=== PATIENT | female | born 1935 | race Caucasian/White ===

== ENCOUNTER 2018-01-22 10:02 | Outpatient (CLI) | payer MEDICARE | END 2018-01-22 10:03 | disposition home or self-care (01) | LOC: BICMAMMO 10:02 | PROVIDERS: ATTEND Family Medicine | DX: Z12.31 Encounter for screening mammogram for malignant neoplasm of breast (principal); Z80.3 Family history of malignant neoplasm of breast | CPT/HCPCS: 77063; 77067 ==

== ENCOUNTER 2019-01-24 11:31 | Outpatient (CLI) | payer MEDICARE ==
--- NOTE | 2019-01-24 13:03 | MMO ---
Bilateral MAMMO Bilat Screen [facility]. CLINICAL HISTORY: Patient is 83 years old and is seen for screening. The patient has the following family history of breast cancer: sister. The patient has no personal history of cancer. VIEWS: The views performed were: bilateral craniocaudal with tomosynthesis and bilateral mediolateral oblique with tomosynthesis. FILMS COMPARED: The present examination has been compared to prior imaging studies performed at [facility] on 01/19/2015, 01/21/2016, 01/21/2017 and 01/22/2018. This study has been interpreted with the assistance of computer-aided detection. MAMMOGRAM FINDINGS: There are scattered fibroglandular densities. There are no suspicious masses, suspicious calcifications, or new areas of architectural distortion. IMPRESSION: THERE IS NO MAMMOGRAPHIC EVIDENCE OF MALIGNANCY. A ROUTINE FOLLOW-UP MAMMOGRAM IN 1 YEAR IS RECOMMENDED. THE RESULTS OF THIS EXAM WERE SENT TO THE PATIENT. ACR BI-RADS Category 1 - Negative MAMMOGRAPHY NOTE: 1. A negative mammogram report should not delay a biopsy if a dominant of clinically suspicious mass is present. 2. Approximately 10% to 15% of breast cancers are not detected by mammography. 3. Adenosis and dense breasts may obscure an underlying neoplasm. Reported by: Meliza GLORIA Electonically Signed: [id number]
== END 2019-01-24 11:32 | disposition home or self-care (01) ==
LOC: BICMAMMO 11:31
PROVIDERS: ATTEND Family Medicine
DX: Z12.31 Encounter for screening mammogram for malignant neoplasm of breast (principal); Z80.3 Family history of malignant neoplasm of breast
CPT/HCPCS: 77063; 77067

== ENCOUNTER 2020-01-31 12:54 | Outpatient (CLI) | payer MEDICARE ==
--- NOTE | 2020-01-31 13:50 | BD ---
EXAM: DEXA bone density examination HISTORY: 84-year-old postmenopausal female for screening COMPARISON: None FINDINGS: L1--bone mineral density 0.795 g/sq cm; T score -1.8 L2--bone mineral density 0.942 g/sq cm; T score -0.8 L3--bone mineral density 1.030 g/sq cm; T score -0.5 L4--bone mineral density 0.953 g/sq cm; T score -1.0 Total L1-L4--bone mineral density 0.938 g/sq cm; T score -1.0 Left femoral neck--bone mineral density0.736; T score -1.0 Total proximal left femur--bone mineral density 0.906; T score -0.3 IMPRESSION: Normal bone density.
--- NOTE | 2020-01-31 13:53 | MMO ---
Bilateral MAMMO Bilat Screen [facility]. CLINICAL HISTORY: Patient is 84 years old and is seen for screening. The patient has the following family history of breast cancer: sister. The patient has no personal history of cancer. VIEWS: The views performed were: bilateral craniocaudal with tomosynthesis and bilateral mediolateral oblique with tomosynthesis. FILMS COMPARED: The present examination has been compared to prior imaging studies performed at [facility] on 01/21/2016, 01/21/2017, 01/22/2018 and 01/24/2019. This study has been interpreted with the assistance of computer-aided detection. MAMMOGRAM FINDINGS: There are scattered fibroglandular densities. Benign calcifications are noted bilaterally. There are no suspicious masses, suspicious calcifications, or new areas of architectural distortion. IMPRESSION: THERE IS NO MAMMOGRAPHIC EVIDENCE OF MALIGNANCY. A ROUTINE FOLLOW-UP MAMMOGRAM IN 1 YEAR IS RECOMMENDED. THE RESULTS OF THIS EXAM WERE SENT TO THE PATIENT. ACR BI-RADS Category 2 - Benign finding MAMMOGRAPHY NOTE: 1. A negative mammogram report should not delay a biopsy if a dominant of clinically suspicious mass is present. 2. Approximately 10% to 15% of breast cancers are not detected by mammography. 3. Adenosis and dense breasts may obscure an underlying neoplasm. Reported by: KARSON JUAREZ MD Electonically Signed: [id number]
--- NOTE | 2020-01-31 13:54 | RAD ---
EXAM: XR Lumbar Spine 2 Or 3 View PROVIDED CLINICAL HISTORY: Low back pain COMPARISON: None FINDINGS: 5 nonrib-bearing lumbar-type vertebral bodies are demonstrated. Grade 1 anterolisthesis L3 on L4. Lum bar alignment appears otherwise normal. Vertebral body heights appear preserved. Disc space narrowing and endplate degenerative changes are noted at L1-2 and L2-3. Vascular calcifications are s een. Lower lumbar spine facet degenerative changes are noted. IMPRESSION: Lumbar disc and facet degeneration.
== END 2020-01-31 12:55 | disposition home or self-care (01) ==
LOC: BICMAMMO 12:54
PROVIDERS: ATTEND Family Medicine
DX: Z12.31 Encounter for screening mammogram for malignant neoplasm of breast (principal); Z13.820 Encounter for screening for osteoporosis; Z78.0 Asymptomatic menopausal state; M85.89 Other specified disorders of bone density and structure, multiple sites; M51.36 Other intervertebral disc degeneration, lumbar region
CPT/HCPCS: 72100; 77063; 77067; 77080

== ENCOUNTER 2021-02-13 12:42 | Outpatient (CLI) | payer MEDICARE | END 2021-02-13 12:43 | disposition home or self-care (01) | LOC: BICMAMMO 12:42 | PROVIDERS: ATTEND Family Medicine | DX: Z12.31 Encounter for screening mammogram for malignant neoplasm of breast (principal); Z80.3 Family history of malignant neoplasm of breast | CPT/HCPCS: 77063; 77067 ==

== ENCOUNTER 2021-08-20 10:03 | Inpatient (IN) | payer MEDICARE ==
[2021-08-20 10:42] LABS: #Eosinphils 0.4 thou/uL (0.0-0.7); #Lymphocytes 1.2 thou/uL (1.20-3.40); #Monocytes 0.5 thou/uL (0.11-0.59); #Neutrophils 7.9 thou/uL (1.40-6.50); %Basophils 0.2 % (0.0-1.0); %Eosinophils 4.2 % (0.0-10.0); %Lymphocytes 11.9 % (21.0-51.0); %Monocytes 4.5 % (0.0-10.0); %Neutrophils 79.3 % (42.0-75.0); Mean Corpuscular HGB CONC 33.9 g/dL (32.0-36.0); Mean Corpuscular Hemoglobin 33.9 pg (27.0-31.0); Mean Platelet Volume 6.2 fL (7.4-10.4); Platelet Count 200 thou/uL (130-400); RBC Distribution Width 11.9 % (11.5-14.5); White Blood Cell (WBC) Count 9.9 thou/uL (4.8-10.8)
[2021-08-20] MEDS ORDERED: Nitroglycerin 2% Ointment 1 INCH/1 GM Packet ONE (11:12)
[2021-08-20] MEDS ORDERED: Furosemide 40 MG/4 ML VIAL ONE (11:12)
[2021-08-20 11:22] LABS: ALT (SGPT) 15 U/L (8-55); AST (SGOT) 21 U/L (5-34); Albumin 4.2 g/dL (3.4-4.8); Alkaline Phosphatase 56 U/L (40-110); Anion Gap 13 mmol/L (10-20); BUN (Urea Nitrogen) 15 mg/dL (9.8-20.1); Bilirubin, Total 0.8 mg/dL (0.2-1.2); Calc. Creatinine Clearance 0 mL/min (70-130); Calcium 9.4 mg/dL (7.8-10.44); Carbon Dioxide 21 mmol/L (23-31); Chloride 104 mmol/L (98-107); Globulin 2.8 g/dL (2.4-3.5); Glucose 109 mg/dL (83-110); Lipase 22 U/L (8-78); Potassium 4.4 mmol/L (3.5-5.1); Sodium 134 mmol/L (136-145)
[2021-08-20] MEDS ORDERED: predniSONE 20 MG TAB ONE (11:35)
[2021-08-20] MEDS ORDERED: Magnesium 2 GM/50 ML BAG (IN WATER) ONE (11:35)
[2021-08-20] MEDS ORDERED: Ondansetron PF 4 MG/2 ML Vial IVP PRN (12:16)
[2021-08-20] MEDS ORDERED: Ondansetron ODT 4 MG TAB PO PRN (12:16)
[2021-08-20] MEDS ORDERED: Acetaminophen 325 MG TAB PO PRN (12:16)
[2021-08-20] MEDS ORDERED: HYDROcodone/Acetaminophen 5/325 mg Tablet PO PRN (12:16)
[2021-08-20] MEDS: Furosemide 20 MG/2 ML VIAL SLOW IVP SCH (15:16)
[2021-08-20 15:50] VITALS: BMI 22.5
[2021-08-20 16:14] LABS: SARS-CoV-2 NAA Rapid Test Not Detected (NotDetected)
[2021-08-20] MEDS: Aspirin 325 MG TAB PO SCH (21:13)
[2021-08-21 04:59] LABS: #Lymphocytes 0.8 thou/uL (1.20-3.40); #Monocytes 0.4 thou/uL (0.11-0.59); %Basophils 0.1 % (0.0-1.0); %Lymphocytes 7.6 % (21.0-51.0); %Monocytes 4.3 % (0.0-10.0); Hemoglobin 14.1 g/dL (12.0-16.0); Mean Corpuscular HGB CONC 34.2 g/dL (32.0-36.0); Mean Corpuscular Hemoglobin 33.8 pg (27.0-31.0); Mean Corpuscular Volume 98.9 fL (78.0-98.0); Mean Platelet Volume 6.4 fL (7.4-10.4); Platelet Count 209 thou/uL (130-400); RBC Distribution Width 11.8 % (11.5-14.5); Red Blood Cell (RBC) Count 4.16 mill/uL (4.20-5.40); White Blood Cell (WBC) Count 10.2 thou/uL (4.8-10.8)
[2021-08-21 05:13] LABS: ALT (SGPT) 9 U/L (8-55); AST (SGOT) 13 U/L (5-34); Albumin 3.5 g/dL (3.4-4.8); Alkaline Phosphatase 43 U/L (40-110); Anion Gap 15 mmol/L (10-20); BUN (Urea Nitrogen) 21 mg/dL (9.8-20.1); Bilirubin, Total 0.5 mg/dL (0.2-1.2); Calc. Creatinine Clearance 35 mL/min (70-130); Calcium 9.4 mg/dL (7.8-10.44); Carbon Dioxide 20 mmol/L (23-31); Chloride 101 mmol/L (98-107); Globulin 2.3 g/dL (2.4-3.5); Glucose 212 mg/dL (83-110); Potassium 3.7 mmol/L (3.5-5.1); Protein, Total 5.8 g/dL (5.8-8.1); Sodium 132 mmol/L (136-145)
[2021-08-21] MEDS: Furosemide 20 MG/2 ML VIAL SLOW IVP SCH ×2 (06:21→13:40)
[2021-08-21] MEDS: Levothyroxine Sodium 50 MCG TAB PO SCH (06:21)
[2021-08-21] MEDS: Aspirin 325 MG TAB PO SCH (08:50)
[2021-08-21] MEDS: Rosuvastatin 10 MG TAB PO SCH (08:51)
[2021-08-21] MEDS: Enoxaparin Sodium 30 MG/0.3 ML SYRINGE SC SCH (08:54)
[2021-08-21] MEDS ORDERED: Enoxaparin Sodium 30 MG/0.3 ML SYRINGE SC SCH (09:00)
[2021-08-22] MEDS: Levothyroxine Sodium 50 MCG TAB PO SCH (05:34)
[2021-08-22] MEDS ORDERED: Aspirin 325 mg Enteric Coated Tablet PO SCH (09:00)
[2021-08-22] MEDS ORDERED: Furosemide 20 MG TAB PO SCH (09:00)
[2021-08-22] MEDS ORDERED: Loratadine 10 MG TAB PO SCH (09:00)
[2021-08-22] MEDS: Rosuvastatin 10 MG TAB PO SCH (09:50)
[2021-08-22] MEDS: Enoxaparin Sodium 30 MG/0.3 ML SYRINGE SC SCH (09:50)
[2021-08-22 15:56] VITALS: BP 158/87; TEMP 98.8
== END 2021-08-22 18:59 | disposition home or self-care (01) | DRG 291 ==
LOC: ERS 10:03 → ERHOLD 11:52 → 2NO 15:25
PROVIDERS: ADMIT Internal Medicine; ATTEND Internal Medicine
DX: I11.0 Hypertensive heart disease with heart failure (principal); I50.33 Acute on chronic diastolic (congestive) heart failure; E87.1 Hypo-osmolality and hyponatremia; E78.5 Hyperlipidemia, unspecified; Z20.822 Contact with and (suspected) exposure to COVID-19; I25.10 Atherosclerotic heart disease of native coronary artery without angina pectoris; E03.9 Hypothyroidism, unspecified; Z96.652 Presence of left artificial knee joint; K21.9 Gastro-esophageal reflux disease without esophagitis; Z95.1 Presence of aortocoronary bypass graft; Z90.49 Acquired absence of other specified parts of digestive tract; Z98.890 Other specified postprocedural states; Z79.51 Long term (current) use of inhaled steroids; Z79.899 Other long term (current) drug therapy; Z79.82 Long term (current) use of aspirin; Z90.710 Acquired absence of both cervix and uterus
CPT/HCPCS: 36415; 71045; 80053; 83690; 83880; 84484; 85025; 93005; 93306; 94640; 96365; 96375; J1650; J1940; J3475; J7512; J7620; U0002

== ENCOUNTER 2021-09-09 21:56 | Observation (INO) | payer MEDICARE ==
[2021-09-09] MEDS ORDERED: Albuterol Sulfate 2.5 mg/3 ml Neb ONE (22:49)
[2021-09-09] MEDS ORDERED: Dexamethasone 10 MG/ML VIAL ONE (22:56)
[2021-09-09] MEDS ORDERED: Magnesium 2 GM/50 ML BAG (IN WATER) ONE (22:56)
[2021-09-09] MEDS ORDERED: Nitroglycerin 2% Ointment 1 INCH/1 GM Packet ONE (22:56)
[2021-09-09] MEDS ORDERED: Aspirin Chewable 81 MG TAB ONE (22:56)
[2021-09-09] MEDS ORDERED: Furosemide 40 MG/4 ML VIAL ONE (22:56)
[2021-09-09 23:09] LABS: ALT (SGPT) 20 U/L (8-55); AST (SGOT) 27 U/L (5-34); Albumin 4.2 g/dL (3.4-4.8); Alkaline Phosphatase 60 U/L (40-110); Anion Gap 17 mmol/L (10-20); BUN (Urea Nitrogen) 12 mg/dL (9.8-20.1); Bilirubin, Total 0.7 mg/dL (0.2-1.2); CK (CPK) 126 U/L (29-168); Calc. Creatinine Clearance 0 mL/min (70-130); Calcium 9.2 mg/dL (7.8-10.44); Carbon Dioxide 20 mmol/L (23-31); Chloride 99 mmol/L (98-107); Estimated GFR 55; Globulin 3.2 g/dL (2.4-3.5); Glucose 155 mg/dL (83-110); Lipase 24 U/L (8-78); Potassium 3.7 mmol/L (3.5-5.1); Protein, Total 7.4 g/dL (5.8-8.1); Sodium 132 mmol/L (136-145)
[2021-09-09 23:10] LABS: Band 8 % (5-11); Eosinophils 6 % (0-10); Hemoglobin 17.6 g/dL (12.0-16.0); Lymphocytes 7 % (21-51); MDiff Complete? YES; Mean Corpuscular HGB CONC 34.4 g/dL (32.0-36.0); Mean Corpuscular Hemoglobin 34.4 pg (27.0-31.0); Mean Platelet Volume 7.3 fL (7.4-10.4); Monocytes 1 % (0-10); Neutrophil 78 % (42-75); Platelet Count 166 thou/uL (130-400); RBC Distribution Width 11.9 % (11.5-14.5); Red Blood Cell (RBC) Count 5.13 mill/uL (4.20-5.40); White Blood Cell (WBC) Count 12.8 thou/uL (4.8-10.8)
[2021-09-10] MEDS ORDERED: Bisacodyl 5 MG TAB PO PRN (00:38)
[2021-09-10] MEDS ORDERED: Zolpidem Tartrate 5 MG TAB PO PRN (00:38)
[2021-09-10] MEDS ORDERED: Ondansetron PF 4 MG/2 ML Vial IVP PRN (00:38)
[2021-09-10] MEDS ORDERED: Acetaminophen 325 MG TAB PO PRN (00:38)
[2021-09-10] MEDS ORDERED: Guaifenesin DM 100-10/5 ML UDCUP PO PRN (00:38)
[2021-09-10] MEDS ORDERED: HYDROcodone/Acetaminophen 5/325 mg Tablet PO PRN (00:38)
[2021-09-10] MEDS ORDERED: Artificial Tear Sol 15 ML BOT EA EYE PRN (00:42)
[2021-09-10] MEDS ORDERED: hydrALAZINE 20 MG/ML VIAL SLOW IVP PRN (00:44)
[2021-09-10] MEDS ORDERED: NIFEdipine XL 60 MG TAB PO SCH ×2 (01:00→09:00)
[2021-09-10] MEDS ORDERED: cefTRIAXone\\ROCEPHIN 1 GM in Sodium Chloride 0.9% 100 ML IVPB SCH (02:00)
[2021-09-10 03:53] LABS: SARS-CoV-2 NAA Rapid Test Not Detected (NotDetected)
[2021-09-10 05:13] LABS: #Lymphocytes 0.6 thou/uL (1.20-3.40); #Monocytes 0.1 thou/uL (0.11-0.59); #Neutrophils 8.5 thou/uL (1.40-6.50); %Basophils 0.2 % (0.0-1.0); %Eosinophils 0.2 % (0.0-10.0); %Lymphocytes 6.2 % (21.0-51.0); %Neutrophils 92.4 % (42.0-75.0); Mean Corpuscular HGB CONC 33.1 g/dL (32.0-36.0); Mean Corpuscular Hemoglobin 33.4 pg (27.0-31.0); Mean Platelet Volume 7.1 fL (7.4-10.4); Platelet Count 207 thou/uL (130-400); Red Blood Cell (RBC) Count 4.79 mill/uL (4.20-5.40); White Blood Cell (WBC) Count 9.2 thou/uL (4.8-10.8)
[2021-09-10 05:35] LABS: ALT (SGPT) 17 U/L (8-55); AST (SGOT) 21 U/L (5-34); Albumin 4.1 g/dL (3.4-4.8); Alkaline Phosphatase 55 U/L (40-110); Anion Gap 17 mmol/L (10-20); BUN (Urea Nitrogen) 12 mg/dL (9.8-20.1); Bilirubin, Total 0.7 mg/dL (0.2-1.2); Calc. Creatinine Clearance 0 mL/min (70-130); Calcium 9.1 mg/dL (7.8-10.44); Carbon Dioxide 23 mmol/L (23-31); Chloride 98 mmol/L (98-107); Estimated GFR 57; Globulin 2.8 g/dL (2.4-3.5); Glucose 194 mg/dL (83-110); Potassium 3.6 mmol/L (3.5-5.1); Protein, Total 6.9 g/dL (5.8-8.1); Sodium 134 mmol/L (136-145)
[2021-09-10 05:43] VITALS: BMI 21.1
[2021-09-10] MEDS: methylPREDNISolone Sod Succ 40 MG VIAL IVP SCH ×2 (05:52→13:52)
[2021-09-10] MEDS ORDERED: Levothyroxine Sodium 50 MCG TAB PO SCH (06:00)
[2021-09-10] MEDS ORDERED: Albuterol Sulfate 2.5 mg/3 ml Neb ONE (07:38)
[2021-09-10] MEDS ORDERED: Potassium Chloride 10 MEQ TAB PO SCH (08:00)
[2021-09-10] MEDS ORDERED: Famotidine 20 MG TAB PO SCH (09:00)
[2021-09-10] MEDS ORDERED: Cefepime 2 GM in Sodium Chloride 0.9% 100 ML IVPB SCH (09:00)
[2021-09-10] MEDS ORDERED: Furosemide 20 MG TAB PO SCH (09:00)
[2021-09-10] MEDS ORDERED: Aspirin 325 mg Enteric Coated Tablet PO SCH (09:00)
[2021-09-10] MEDS ORDERED: Rosuvastatin 10 MG TAB PO SCH (09:00)
[2021-09-10] MEDS ORDERED: Enoxaparin Sodium 30 MG/0.3 ML SYRINGE SC SCH (09:00)
[2021-09-10] MEDS ORDERED: DorzolamidE/Timolol 2%/0.5% Ophth Soln 10 ml Bottle EA EYE SCH (09:00)
[2021-09-10] MEDS ORDERED: Benzonatate 100 MG CAP PO SCH (15:00)
[2021-09-10 16:18] VITALS: BP 99/56; TEMP 97.3
[2021-09-10] MEDS ORDERED: NETARSUDIL MESYLAT EA EYE SCH (21:00)
[2021-09-10] MEDS ORDERED: LATANOPROST EA EYE SCH (21:00)
[2021-09-10] MEDS ORDERED: Ascorbic Acid 500 mg Chewable Tablet PO SCH (21:00)
== END 2021-09-10 17:14 | disposition home or self-care (01) ==
LOC: ERS 21:56 → 2SW 09-10 02:34
PROVIDERS: ADMIT Internal Medicine; ATTEND Internal Medicine
DX: J96.01 Acute respiratory failure with hypoxia (principal); I10 Essential (primary) hypertension; I25.10 Atherosclerotic heart disease of native coronary artery without angina pectoris; E03.9 Hypothyroidism, unspecified; E87.1 Hypo-osmolality and hyponatremia; E78.5 Hyperlipidemia, unspecified; Z79.82 Long term (current) use of aspirin; Z79.890 Hormone replacement therapy; Z79.899 Other long term (current) drug therapy; Z95.1 Presence of aortocoronary bypass graft; Z20.822 Contact with and (suspected) exposure to COVID-19
CPT/HCPCS: 71045; 80053 ×2; 82306; 82550; 83690; 83880; 84145; 84484; 85025 ×2; 85379; 86140; 93005; 93970; 94640; 94644; 94660; 96365; 96372; 96375; G0378 ×2; U0002; 36415; J0692; J0696; J1100; J1650; J1940; J2920; J3475; J3490; J7611; J7620

== ENCOUNTER 2021-09-20 09:19 | Emergency (ER) | payer MEDICARE ==
[2021-09-20] MEDS ORDERED: methylPREDNISolone Sod Succ/PF 125 MG/2 ML VIAL ONE (09:42)
[2021-09-20] MEDS ORDERED: Nitroglycerin 2% Ointment 1 INCH/1 GM Packet ONE (09:42)
[2021-09-20 10:07] LABS: #Basophils 0.1 thou/uL (0.0-0.2); #Eosinphils 0.5 thou/uL (0.0-0.7); #Lymphocytes 1.5 thou/uL (1.20-3.40); #Monocytes 0.6 thou/uL (0.11-0.59); #Neutrophils 6.2 thou/uL (1.40-6.50); %Basophils 0.7 % (0.0-1.0); %Eosinophils 5.7 % (0.0-10.0); %Lymphocytes 16.6 % (21.0-51.0); %Neutrophils 70.1 % (42.0-75.0); Hemoglobin 18.4 g/dL (12.0-16.0); Mean Corpuscular HGB CONC 32.8 g/dL (32.0-36.0); Mean Corpuscular Hemoglobin 32.9 pg (27.0-31.0); Mean Platelet Volume 6.9 fL (7.4-10.4); Platelet Count 224 thou/uL (130-400); White Blood Cell (WBC) Count 8.8 thou/uL (4.8-10.8)
[2021-09-20 10:26] LABS: ALT (SGPT) 18 U/L (8-55); AST (SGOT) 30 U/L (5-34); Albumin 4.5 g/dL (3.4-4.8); Alkaline Phosphatase 64 U/L (40-110); Anion Gap 17 mmol/L (10-20); BUN (Urea Nitrogen) 14 mg/dL (9.8-20.1); Bilirubin, Total 1.1 mg/dL (0.2-1.2); Calc. Creatinine Clearance 0 mL/min (70-130); Calcium 9.4 mg/dL (7.8-10.44); Carbon Dioxide 26 mmol/L (23-31); Chloride 95 mmol/L (98-107); Estimated GFR 59; Globulin 3.5 g/dL (2.4-3.5); Glucose 142 mg/dL (83-110); Sodium 134 mmol/L (136-145)
[2021-09-20 11:43] LABS: SARS-CoV-2 NAA Rapid Test Not Detected (NotDetected)
[2021-09-20 13:09] LABS: Bilirubin Negative (Negative); Blood, Urine Negative (Negative); Clarity Clear (Clear); Glucose, Urine (Dipstick) Normal (Negative); Ketone, Urine Negative (Negative); Leukocyte Negative Leu/uL (Negative); Nitrite Negative (Negative); Protein, Urine (Dipstick) Negative (Neg-Trace); Specific Gravity, Urine 1.009 (1.002-1.036); Urobilinogen Normal mg/dL (Less than 2)
[2021-09-20 13:25] LABS: Lactic Acid 2.7 mmol/L (0.5-2.2)
== END 2021-09-20 15:31 ==
LOC: ERS 09:19
DX: J44.1 Chronic obstructive pulmonary disease with (acute) exacerbation (principal); Z20.822 Contact with and (suspected) exposure to COVID-19; I10 Essential (primary) hypertension; E78.5 Hyperlipidemia, unspecified; I25.10 Atherosclerotic heart disease of native coronary artery without angina pectoris; E03.9 Hypothyroidism, unspecified; K21.9 Gastro-esophageal reflux disease without esophagitis; Z79.82 Long term (current) use of aspirin; Z79.899 Other long term (current) drug therapy
CPT/HCPCS: 71045; 80053; 81003; 83605; 83880; 84484; 85025; 87040; 93005; 94640; U0002; 36415; 96374; J2930; J7620

== ENCOUNTER 2021-11-05 09:28 | Outpatient (CLI) | payer MEDICARE | END 2021-11-05 09:29 | disposition home or self-care (01) | LOC: RAD 09:28 | PROVIDERS: ATTEND Internal Medicine | DX: J44.9 Chronic obstructive pulmonary disease, unspecified (principal); K21.9 Gastro-esophageal reflux disease without esophagitis; K22.89 Other specified disease of esophagus | CPT/HCPCS: 74220 ==

== ENCOUNTER 2021-12-31 15:34 | Outpatient (CLI) | payer MEDICARE | END 2021-12-31 15:35 | disposition home or self-care (01) | LOC: RAD 15:34 | PROVIDERS: ATTEND Internal Medicine | DX: R06.00 Dyspnea, unspecified (principal) | CPT/HCPCS: 71046 ==